=== PATIENT | male | born 1965 ===

== ENCOUNTER 2023-01-16 16:00 | Outpatient (CLI) | payer OTHER | END 2023-01-16 16:02 | disposition home or self-care (01) | LOC: LAB 16:00 | PROVIDERS: ATTEND Urology | DX: R97.20 Elevated prostate specific antigen [PSA] (principal) ==

== ENCOUNTER 2023-01-25 07:22 | Outpatient (CLI) | payer OTHER | END 2023-01-25 12:51 | disposition home or self-care (01) | LOC: SONOGRAMA 07:22 | PROVIDERS: ATTEND Urology | DX: C61 Malignant neoplasm of prostate (principal); D29.1 Benign neoplasm of prostate ==

== ENCOUNTER 2024-08-26 16:51 | Outpatient (CLI) | payer OTHER | END 2024-08-26 17:01 | disposition home or self-care (01) | LOC: LAB 16:51 | PROVIDERS: ATTEND Urology | DX: R97.20 Elevated prostate specific antigen [PSA] (principal) ==

== ENCOUNTER 2024-10-09 07:12 | Outpatient (CLI) | payer OTHER | END 2024-10-09 07:21 | disposition home or self-care (01) | LOC: SONOGRAMA 07:12 | PROVIDERS: ATTEND Urology | DX: C61 Malignant neoplasm of prostate (principal); N40.1 Benign prostatic hyperplasia with lower urinary tract symptoms; R97.20 Elevated prostate specific antigen [PSA] ==